=== PATIENT | male | born 1940 | race Caucasian/White ===

== ENCOUNTER 2016-10-01 10:31 | Observation (INO) | payer MEDICARE, OTHER ==
[~2016-10-01] VITALS: Ht 180.3 cm; Wt 105.0 kg
[2016-10-01 12:10] LABS: HEMATOCRIT 41.3 % (40-51); HEMOGLOBIN 14.4 g/dL (13.7-17.5); MEAN CORPUSCULAR HEMOGLOBIN 32.4 pg (27.0-33.0); MEAN CORPUSCULAR HGB CONC 34.9 g/dL (32.0-36.0); MEAN CORPUSCULAR VOLUME 92.8 fL (79-92); MEAN PLATELET VOLUME 11.4 fl (7.5-11.5); RED BLOOD COUNT 4.45 x10_6/uL (4.6-6.1); WHITE BLOOD COUNT 8.7 x10_3/uL (4.2-9.1)
[2016-10-01 12:21] LABS: BLOOD UREA NITROGEN 15 mg/dL (7-18); CALCIUM 8.6 mg/dL (8.7-10.7); CARBON DIOXIDE 26 mmol/L (21-32); CREATININE 0.8 mg/dL (0.6-1.3); GLUCOSE,RANDOM 127 mg/dL (70-99); POTASSIUM 3.8 mmol/L (3.5-5.1); SODIUM 140 mmol/L (136-145)
[2016-10-01 13:35] LABS: ALBUMIN 3.7 gm/dL (3.4-5.0); ALKALINE PHOSPHATASE 61 U/L (50-136); ALT/SGPT 14 U/L (7.53-40.17); AST/SGOT 23 U/L (6.66-35.34); BILIRUBIN,TOTAL 0.36 mg/dL (0.0-1.0); TOTAL PROTEIN 6.6 gm/dL (6.4-8.2)
[2016-10-01 13:38] LABS: BILIRUBIN,DIRECT < 0.20 mg/dL (0.0-0.30)
[2016-10-02 22:15] LABS: CKMB 5.6 ng/ml (0.0-5.0); TROP-I < 0.30 NG/ML (0.00-0.30)
[2016-10-03 03:57] LABS: HEMATOCRIT 39.5 % (40-51); HEMOGLOBIN 13.4 g/dL (13.7-17.5); MEAN CORPUSCULAR HGB CONC 33.9 g/dL (32.0-36.0); MEAN CORPUSCULAR VOLUME 94.3 fL (79-92); MEAN PLATELET VOLUME 11.4 fl (7.5-11.5); RED BLOOD COUNT 4.19 x10_6/uL (4.6-6.1); RED CELL DISTRIBUTION WIDTH 13.1 % (11.6-14.4); WHITE BLOOD COUNT 16.4 x10_3/uL (4.2-9.1)
[2016-10-03 04:30] LABS: BLOOD UREA NITROGEN 18 mg/dL (7-18); CALCIUM 8.2 mg/dL (8.7-10.7); CARBON DIOXIDE 22 mmol/L (21-32); CREATININE 0.9 mg/dL (0.6-1.3); GLUCOSE,RANDOM 224 mg/dL (70-99)
[2016-10-03 04:35] LABS: POTASSIUM 4.8 mmol/L (3.5-5.1); SODIUM 138 mmol/L (136-145)
[2016-10-03 05:08] LABS: CKMB 9.7 ng/ml (0.0-5.0); TROP-I 0.51 NG/ML (0.00-0.30)
[2016-10-03 06:50] LABS: AHDL CHOLESTEROL 28 mg/dL (>40); ALBUMIN 3.4 gm/dL (3.4-5.0); ALKALINE PHOSPHATASE 54 U/L (50-136); ALT/SGPT 16 U/L (7.53-40.17); AST/SGOT 22 U/L (6.66-35.34); CHOLESTEROL 179 mg/dL (0-200); LDL CHOLESTEROL 130 mg/dL (0-99); TOTAL PROTEIN 5.8 gm/dL (6.4-8.2); TRIGLYCERIDES 119 mg/dL (30-200)
[2016-10-03 06:51] LABS: BILIRUBIN,DIRECT < 0.20 mg/dL (0.0-0.30); BILIRUBIN,TOTAL < 0.15 mg/dL (0.0-1.0)
[2016-10-03 07:29] LABS: TROP-I 0.76 NG/ML (0.00-0.30)
== END 2016-10-03 09:08 | disposition other institution (70) ==
LOC: MS 10:31
PROVIDERS: ADMIT Family Medicine
DX: J44.1 Chronic obstructive pulmonary disease with (acute) exacerbation (principal); I24.9 Acute ischemic heart disease, unspecified; M54.5 Low back pain; M25.512 Pain in left shoulder; M25.511 Pain in right shoulder; R25.1 Tremor, unspecified; Z95.810 Presence of automatic (implantable) cardiac defibrillator; G47.00 Insomnia, unspecified; F32.9 Major depressive disorder, single episode, unspecified; E78.5 Hyperlipidemia, unspecified; K21.9 Gastro-esophageal reflux disease without esophagitis; J06.9 Acute upper respiratory infection, unspecified; R53.81 Other malaise; R53.83 Other fatigue; I10 Essential (primary) hypertension; H91.91 Unspecified hearing loss, right ear; R63.0 Anorexia; I25.10 Atherosclerotic heart disease of native coronary artery without angina pectoris; M51.36 Other intervertebral disc degeneration, lumbar region; Z79.82 Long term (current) use of aspirin; Z79.899 Other long term (current) drug therapy; Z88.5 Allergy status to narcotic agent; Z83.3 Family history of diabetes mellitus; Z82.49 Family history of ischemic heart disease and other diseases of the circulatory system; Z68.32 Body mass index [BMI] 32.0-32.9, adult
CPT/HCPCS: 36415; 71020; 72100; 73030; 80048; 80061; 80076; 82550; 82553; 83036; 83880; 86738; 87040; 87449; 93005; 93041; 94640; 96361; 96365; 96366; 96367; 96372; 96375; 96376; 99070; G0378; G0379; J2930